=== PATIENT | male | born 1960 | race African-American/Black ===

== ENCOUNTER 2020-01-13 11:39 | Inpatient (IN) | payer OTHER ==
[2020-01-13 12:39] VITALS: BMI 24.4
--- NOTE | 2020-01-13 13:22 | HP ---
CIWA Score Nausea/Vomitin Muscle Tremors: 2 Anxiety: 2 Agitation: 2 Paroxysmal Sweats: 1-Minimal Palms Moist Orientation: 0-Oriented Tacttile Disturbances: 1-Very Mild Itch/Numbness Auditory Disturbances: 0-None Visual Disturbances: 2-Mild Sensitivity Headache: 2-Mild CIWA-Ar Total Score: 14 - Admission Criteria OASAS Guidelines: Admission for Medically Managed Detox: Requires at least one of the followin. CIWA greater than 12 2. Seizures within the past 24 hours 3. Delirium tremens within the past 24 hours 4. Hallucinations within the past 24 hours 5. Acute intervention needed for co occurring medical disorder 6. Acute intervention needed for co occurring psychiatric disorder 7. Severe withdrawal that cannot be handled at a lower level of care (continued vomiting, continued diarrhea, abnormal vital signs) requiring intravenous medication and/or fluids 8. Admitting History and Physical - Admission Chief Complaint: i need help to stop drinking alcohol History of Present Illness: this 59 years old male with alcohol dependence,seeking detox,first admission to this facility, syncope no seizure poor historian History Source: Patient Limitations to Obtaining History: No Limitations - Past Medical History [employer]: Yes: Syncope - Smoking History Smoking history: Current every day smoker Have you smoked in the past 12 months: Yes Aproximately how many cigarettes per day: 3 - Alcohol/Substance Use Hx Alcohol Use: Yes History of Substance Use: reports: None - Social History Usual Living Arrangement: Yes: Other (homeless) ADL: Support Services Occupation: unemployed History of Recent Travel: No Admission ROS [facility] - [facility] Chief Complaint: i need help to stop drinking alcoholl Allergies/Adverse Reactions: Allergies Allergy/AdvReac Type Severity Reaction Status Date / Time No Known Allergies Allergy Verified 01/13/20 12:31 History of Present Illness: this 59 years old male with alcohol dependence seeking help to stop, first visit to this facility syncope alcohol related no seizure Exam Limitations: No Limitations - Ebola screening Have you traveled outside of the country in the last 21 days: No Have you had contact with anyone from an Ebola affected area: No Have you been sick,other than usual withdrawal symptoms: No Do you have a fever: No - Review of Systems Constitutional: Loss of Appetite, Malaise, Night Sweats, Changes in sleep, Weakness, Unintentional Wgt. Loss EENT: reports: Nose Congestion Respiratory: reports: No Symptoms reported Cardiac: reports: No Symptoms Reported GI: reports: Nausea, Poor Appetite, Abdominal cramping : reports: No Symptoms Reported Musculoskeletal: reports: Back Pain, Muscle Pain Integumentary: reports: Dryness Neuro: reports: Headache, Tremors Endocrine: reports: No Symptoms Reported Hematology: reports: No Symptoms Reported Psychiatric: reports: No Sypmtoms Reported, Judgement Intact, Mood/Affect Appropiate, Orientated x3 Other Systems: Reviewed and Negative Patient History - Patient Medical History Hx Asthma: No Hx Chronic Obstructive Pulmonary Disease (COPD): No Hx Cancer: No Hx Cardiac Disorders: No Hx Hypertension: No Hx Hypercholesterolemia: No Hx Pacemaker: No HX Cerebrovascular Accident: No Hx Seizures: No Hx Dementia: No Hx Diabetes: No Hx Gastrointestinal Disorders: No Hx Genitourinary Disorders: No Hx Sexually Transmitted Disorders: No Hx Renal Disease (ESRD): No Hx Thyroid Disease: No Hx Human Immunodeficiency Virus (HIV): No (last 2019 negative) Hx Hepatitis C: No Hx Depression: No Hx Suicide Attempt: No Hx Bipolar Disorder: No Hx Schizophrenia: No Other Medical History: no suicidal,no homicidal - Patient Surgical History Past Surgical History: No Hx Neurologic Surgery: No Hx Cataract Extraction: No Hx Cardiac Surgery: No Hx Lung Surgery: No Hx Breast Surgery: No Hx Breast Biopsy: No Hx Abdominal Surgery: No Hx Appendectomy: No Hx Cholecystectomy: No Hx Genitourinary Surgery: No Hx Section: No Hx Orthopedic Surgery: Yes (right hand fx. 2019) Anesthesia Reaction: Yes - PPD History Previous Implant?: Yes Documented Results: Negative w/o proof Implanted On Prior R Admission?: No PPD to be Administered?: Yes - Smoking Cessation Smoking history: Current every day smoker Have you smoked in the past 12 months: Yes Aproximately how many cigarettes per day: 3 Cigars Per Day: 1 Hx Chewing Tobacco Use: No Initiated information on smoking cessation: Yes 'Breaking Loose' booklet given: 01/13/20 - Substance & Tx. History Hx Alcohol Use: Yes Hx Substance Use: No Substance Use Type: Alcohol Hx Substance Use Treatment: Yes (2019 did not recall facility) - Substances abused Alcohol Substance route: Oral Frequency: Daily Amount used: 7-14 nips of vodka 1pint to 1 and half pint of vodka Age of first use: 14 Date of last use: 01/13/20 Admission Physical Exam BHS - Vital Signs Vital Signs: Vital Signs - 24 hr 01/13/20 12:12 Temperature 97.0 F L Pulse Rate 103 H Respiratory 20 Rate Blood Pressure 151/92 - Physical General Appearance: Yes: Moderate Distress, Tremorous, Irritable, Sweating, Anxious HEENTM: Yes: Normocephalic, GENIA, Pharynx Normal Respiratory: Yes: Within Normal Limits, Lungs Clear, Normal Breath Sounds Neck: Yes: Within Normal Limits, Supple, Trachea in good position Breast: Yes: Within Normal Limits Cardiology: Yes: Within Normal Limits, Regular Rhythm, Regular Rate, S1, S2 Abdominal: Yes: Normal Bowel Sounds, Non Tender, Flat, Soft, Organomegaly Genitourinary: Yes: Within Normal Limits Back: Yes: Muscle Spasm Musculoskeletal: Yes: Back pain, Muscle Pain Extremities: Yes: Tremors Neurological: Yes: laminator printed circuit boards II-XII NML intact, Alert, Motor Strength 5/5 Integumentary: Yes: Dry Lymphatic: Yes: Within Normal Limits - Diagnostic (1) Alcohol dependence with uncomplicated withdrawal Current Visit: Yes Status: Acute (2) Syncope Current Visit: Yes Status: Acute (3) Dehydration Current Visit: Yes Status: Acute (4) Nicotine dependence Current Visit: Yes Status: Acute (5) Weight loss Current Visit: Yes Status: Acute Cleared for Admission [facility] - Detox or Rehab [facility] Level of Care: Medically Managed Detox Regimen/Protocol: Librium Breathalyzer - Breathalyzer Breathalyzer: 0.008 Urine Drug Screen - Test Device Lot number: [id number] Expiration date: 10/13/21 - Control Is test valid?: Yes - Results Drug screen NEGATIVE: Yes Inpatient Rehab Admission - Rehab Decision to Admit Inpatient rehab admission?: No
[2020-01-13] MEDS ORDERED: MENTHOL/PHENOL 1 EACH UD MM PRN (13:31)
[2020-01-13] MEDS ORDERED: ACETAMINOPHEN 325 MG TABLET (FP) PO PRN ×2 (13:31)
[2020-01-13] MEDS ORDERED: chlordiazePOXIDE HCL 25 MG CAPSULE PO PRN (13:31)
[2020-01-13] MEDS ORDERED: MAG HYDROX/AL HYDROX/SIMETH 30 ML UNIT-DOSE CUP PO PRN (13:31)
[2020-01-13] MEDS ORDERED: hydrOXYzine PAMOATE 25 MG CAPSULE (FP) PO PRN (13:31)
[2020-01-13] MEDS ORDERED: MAGNESIUM CITRATE 300 ML BOTTLE PO PRN (13:31)
[2020-01-13] MEDS ORDERED: MAGNESIUM HYDROX 2400MG/30ML ORAL SUSPENSION 30 ML CUP PO PRN (13:31)
[2020-01-13] MEDS ORDERED: BISMUTH SUBSALICYLATE 524 MG/30 ML UD PO PRN (13:31)
[2020-01-13] MEDS ORDERED: IBUPROFEN 400 MG TABLET (FP) PO PRN (13:31)
[2020-01-13] MEDS ORDERED: METHOCARBAMOL 500 MG TABLET PO PRN (13:31)
[2020-01-13] MEDS ORDERED: MELATONIN 5 MG TABLETS PO PRN (22:00)
[2020-01-13] MEDS: chlordiazePOXIDE HCL 25 MG CAPSULE PO SCH (22:40)
[2020-01-13] MEDS: THIAMINE HCL 100 MG TABLET (FP) PO SCH (22:40)
[2020-01-14] MEDS: chlordiazePOXIDE HCL 25 MG CAPSULE PO SCH ×3 (06:18→18:33)
--- NOTE | 2020-01-14 09:30 | EKG ---
Test Reason : Blood Pressure : / mmHG Vent. Rate : 100 BPM Atrial Rate : 100 BPM P-R Int : 144 ms QRS Dur : 082 ms QT Int : 342 ms P-R-T Axes : 058 -18 025 degrees QTc Int : 441 ms NORMAL SINUS RHYTHM NORMAL ECG NO PREVIOUS ECGS AVAILABLE Confirmed by Maame Edwards ([id number]) on 01/14/2020 9:30:32 AM Referred By: ELANA Confirmed By:Maame Edwards
[2020-01-14] MEDS: PRENATAL VITAMINS W/ FOLIC ACID TABLET (FP) PO SCH (10:11)
[2020-01-14 10:21] LABS: HEMATOCRIT 42.7 % (35.4-49); HEMOGLOBIN 13.9 GM/dL (11.7-16.9); MCH 28.5 pg (25.7-33.7); MCHC 32.6 g/dl (32.0-35.9); MEAN CELL VOLUME 87.5 fl (80-96); PLATELET COUNT 223 K/MM3 (134-434); RBC 4.88 M/mm3 (4.00-5.60); RDW 14.8 % (11.9-15.9); WHITE BLOOD COUNT 5.5 K/mm3 (4.0-10.0)
[2020-01-14 10:41] LABS: ALBUMIN 3.5 g/dl (3.4-5.0); BILIRUBIN,TOTAL 1.2 mg/dL (0.2-1); BLOOD UREA NITROGEN 16.8 mg/dL (7-18); CALCIUM 11.4 mg/dL (8.5-10.1); CREATININE 1.3 mg/dL (0.55-1.3); POTASSIUM 3.9 mmol/L (3.5-5.1); TOT PROT 6.5 g/dl (6.4-8.2)
[2020-01-14 10:47] LABS: SICKLE CELL SCREEN NEGATIVE (NEGATIVE)
--- NOTE | 2020-01-14 11:55 | PN ---
[facility] CIWA - CIWA Score Nausea/Vomitin-No Nausea/No Vomiting Muscle Tremors: 3 Anxiety: 4-Mod. Anxious/Guarded Agitation: 0-Normal Activity Paroxysmal Sweats: 1-Minimal Palms Moist Orientation: 0-Oriented Tacttile Disturbances: 0-None Auditory Disturbances: 0-None Visual Disturbances: 2-Mild Sensitivity Headache: 0-None Present CIWA-Ar Total Score: 10 BHS Progress Note (SOAP) Subjective: 59 years old male admitted on 01/13/20 for alcohol withdrawal sx management treating with librium detox regiment trouble sleep at night restlessness anxious Objective: 01/14/20 11:57 Vital Signs Temperature 96.8 F L 01/14/20 08:54 Pulse Rate 92 H 01/14/20 08:54 Respiratory Rate 20 01/14/20 08:54 Blood Pressure 165/94 01/14/20 08:54 O2 Sat by Pulse Oximetry (%) Laboratory Last Values WBC 5.5 K/mm3 (4.0-10.0) 01/14/20 08:00 RBC 4.88 M/mm3 (4.00-5.60) 01/14/20 08:00 Hgb 13.9 GM/dL (11.7-16.9) 01/14/20 08:00 Hct 42.7 % (35.4-49) 01/14/20 08:00 MCV 87.5 fl (80-96) 01/14/20 08:00 MCH 28.5 pg (25.7-33.7) 01/14/20 08:00 MCHC 32.6 g/dl (32.0-35.9) 01/14/20 08:00 RDW 14.8 % (11.9-15.9) 01/14/20 08:00 Plt Count 223 K/MM3 (134-434) 01/14/20 08:00 MPV 9.0 fl (7.5-11.1) 01/14/20 08:00 Sickle Cell Screen Negative (NEGATIVE) 01/14/20 08:00 Sodium 139 mmol/L (136-145) 01/14/20 08:00 Potassium 3.9 mmol/L (3.5-5.1) 01/14/20 08:00 Chloride 107 mmol/L (98-107) 01/14/20 08:00 Carbon Dioxide 28 mmol/L (21-32) 01/14/20 08:00 Anion Gap 4 MMOL/L (8-16) L 01/14/20 08:00 BUN 16.8 mg/dL (7-18) 01/14/20 08:00 Creatinine 1.3 mg/dL (0.55-1.3) 01/14/20 08:00 Est GFR (CKD-EPI)AfAm 69.22 01/14/20 08:00 Est GFR (CKD-EPI)NonAf 59.72 01/14/20 08:00 Random Glucose 95 mg/dL (74-106) 01/14/20 08:00 Calcium 11.4 mg/dL (8.5-10.1) H 01/14/20 08:00 Total Bilirubin 1.2 mg/dL (0.2-1) H 01/14/20 08:00 AST 13 U/L (15-37) L 01/14/20 08:00 ALT 17 U/L (13-61) 01/14/20 08:00 Alkaline Phosphatase 142 U/L (45-117) H 01/14/20 08:00 Total Protein 6.5 g/dl (6.4-8.2) 01/14/20 08:00 Albumin 3.5 g/dl (3.4-5.0) 01/14/20 08:00 HIV 1&2 Antibody Screen Negative 01/14/20 08:00 HIV P24 Antigen Negative 01/14/20 08:00 lab noted bp elevation begin amlodipine 10 mg po daily 01/14/20 12:02 01/14/20 12:03 Assessment: 01/14/20 12:04 alcohol withdrawal Plan: librium regiment
[2020-01-14] MEDS: amLODIPine BESYLATE 10 MG TABLET (FP) PO SCH (13:42)
[2020-01-14] MEDS ORDERED: chlordiazePOXIDE HCL 10 MG CAPSULE PO PRN (20:09)
[2020-01-14] MEDS ORDERED: chlordiazePOXIDE HCL 25 MG CAPSULE PO SCH (20:10)
--- NOTE | 2020-01-14 20:16 | PN ---
[facility] Progress Note Note: Patient states fell asleep while watching TV, fell out of chair and hit his head. Denies headache, pain, or dizziness. Vital Signs 01/14/20 01/14/20 16:35 19:39 Temperature 96.8 F L 97.0 F L Pulse Rate 87 95 H Respiratory 18 20 Rate Blood Pressure 142/96 164/101 H Assess: Alert and oriented. Gait steady. BHG = GENIA. Sclera clear. 2.5 cm hematoma noted on (L) lateral forehead w/ erythema. Skin intact. Non- tender. Plan: Fall Protocol 1. Patient refused CT scan. Ice Pack q1h and prn x 24 hr.
[2020-01-14] MEDS: THIAMINE HCL 100 MG TABLET (FP) PO SCH (22:37)
[2020-01-15] MEDS ORDERED: chlordiazePOXIDE HCL 25 MG CAPSULE PO SCH (05:00)
[2020-01-15] MEDS: chlordiazePOXIDE 5 MG CAPSULE PO SCH ×4 (06:19→22:21)
[2020-01-15] MEDS: amLODIPine BESYLATE 10 MG TABLET (FP) PO SCH (10:44)
[2020-01-15] MEDS: PRENATAL VITAMINS W/ FOLIC ACID TABLET (FP) PO SCH (10:44)
--- NOTE | 2020-01-15 11:32 | PN ---
S CIWA - CIWA Score Nausea/Vomitin-No Nausea/No Vomiting Muscle Tremors: 2 Anxiety: 3 Agitation: 1-Slight > Activity Paroxysmal Sweats: 1-Minimal Palms Moist Orientation: 0-Oriented Tacttile Disturbances: 0-None Auditory Disturbances: 0-None Visual Disturbances: 1-Very Mild Sensitivity Headache: 0-None Present CIWA-Ar Total Score: 8 BHS Progress Note (SOAP) Subjective: 59 years old male admitted on 01/14/20 for alcohol withdrawal sx management treating with librium detox regiment denies headache left lateral forehead hematoma subsided to 1 cm no erythema of the skin noted denies dizziness ambulating steady gait alert oriented x 3 speech clearly Objective: 01/15/20 11:35 Vital Signs Temperature 96.9 F L 01/15/20 08:52 Pulse Rate 92 H 01/15/20 08:52 Respiratory Rate 16 01/15/20 08:52 Blood Pressure 139/92 01/15/20 08:52 O2 Sat by Pulse Oximetry (%) Laboratory Last Values WBC 5.5 K/mm3 (4.0-10.0) 01/14/20 08:00 RBC 4.88 M/mm3 (4.00-5.60) 01/14/20 08:00 Hgb 13.9 GM/dL (11.7-16.9) 01/14/20 08:00 Hct 42.7 % (35.4-49) 01/14/20 08:00 MCV 87.5 fl (80-96) 01/14/20 08:00 MCH 28.5 pg (25.7-33.7) 01/14/20 08:00 MCHC 32.6 g/dl (32.0-35.9) 01/14/20 08:00 RDW 14.8 % (11.9-15.9) 01/14/20 08:00 Plt Count 223 K/MM3 (134-434) 01/14/20 08:00 MPV 9.0 fl (7.5-11.1) 01/14/20 08:00 Sickle Cell Screen Negative (NEGATIVE) 01/14/20 08:00 Sodium 139 mmol/L (136-145) 01/14/20 08:00 Potassium 3.9 mmol/L (3.5-5.1) 01/14/20 08:00 Chloride 107 mmol/L (98-107) 01/14/20 08:00 Carbon Dioxide 28 mmol/L (21-32) 01/14/20 08:00 Anion Gap 4 MMOL/L (8-16) L 01/14/20 08:00 BUN 16.8 mg/dL (7-18) 01/14/20 08:00 Creatinine 1.3 mg/dL (0.55-1.3) 01/14/20 08:00 Est GFR (CKD-EPI)AfAm 69.22 01/14/20 08:00 Est GFR (CKD-EPI)NonAf 59.72 01/14/20 08:00 Random Glucose 95 mg/dL (74-106) 01/14/20 08:00 Calcium 11.4 mg/dL (8.5-10.1) H 01/14/20 08:00 Total Bilirubin 1.2 mg/dL (0.2-1) H 01/14/20 08:00 AST 13 U/L (15-37) L 01/14/20 08:00 ALT 17 U/L (13-61) 01/14/20 08:00 Alkaline Phosphatase 142 U/L (45-117) H 01/14/20 08:00 Total Protein 6.5 g/dl (6.4-8.2) 01/14/20 08:00 Albumin 3.5 g/dl (3.4-5.0) 01/14/20 08:00 RPR Titer Nonreactive (NONREACTIVE) 01/14/20 08:00 HIV 1&2 Antibody Screen Negative 01/14/20 08:00 HIV P24 Antigen Negative 01/14/20 08:00 lab noted Assessment: 01/15/20 11:35 alcohol withdrawal Plan: librium regiment
[2020-01-15] MEDS: THIAMINE HCL 100 MG TABLET (FP) PO SCH (22:21)
[2020-01-16] MEDS ORDERED: chlordiazePOXIDE HCL 10 MG CAPSULE PO PRN
[2020-01-16] MEDS: chlordiazePOXIDE HCL 10 MG CAPSULE PO SCH ×4 (05:37→22:28)
[2020-01-16] MEDS: amLODIPine BESYLATE 10 MG TABLET (FP) PO SCH (10:30)
[2020-01-16] MEDS: PRENATAL VITAMINS W/ FOLIC ACID TABLET (FP) PO SCH (10:30)
--- NOTE | 2020-01-16 11:26 | PN ---
S CIWA - CIWA Score Nausea/Vomitin-No Nausea/No Vomiting Muscle Tremors: 2 Anxiety: 2 Agitation: 1-Slight > Activity Paroxysmal Sweats: 1-Minimal Palms Moist Orientation: 0-Oriented Tacttile Disturbances: 0-None Auditory Disturbances: 0-None Visual Disturbances: 0-None Headache: 0-None Present CIWA-Ar Total Score: 6 BHS Progress Note (SOAP) Subjective: 59 years old male admitted on 01/13/20 for alcohol withdrawal sx management treating with librium detox regiment requests ensure as nutrition supplement that weight loss recently Objective: 01/16/20 11:24 Vital Signs Temperature 97.5 F L 01/16/20 08:41 Pulse Rate 101 H 01/16/20 08:41 Respiratory Rate 20 01/16/20 08:41 Blood Pressure 141/99 01/16/20 08:41 O2 Sat by Pulse Oximetry (%) Laboratory Last Values WBC 5.5 K/mm3 (4.0-10.0) 01/14/20 08:00 RBC 4.88 M/mm3 (4.00-5.60) 01/14/20 08:00 Hgb 13.9 GM/dL (11.7-16.9) 01/14/20 08:00 Hct 42.7 % (35.4-49) 01/14/20 08:00 MCV 87.5 fl (80-96) 01/14/20 08:00 MCH 28.5 pg (25.7-33.7) 01/14/20 08:00 MCHC 32.6 g/dl (32.0-35.9) 01/14/20 08:00 RDW 14.8 % (11.9-15.9) 01/14/20 08:00 Plt Count 223 K/MM3 (134-434) 01/14/20 08:00 MPV 9.0 fl (7.5-11.1) 01/14/20 08:00 Sickle Cell Screen Negative (NEGATIVE) 01/14/20 08:00 Sodium 139 mmol/L (136-145) 01/14/20 08:00 Potassium 3.9 mmol/L (3.5-5.1) 01/14/20 08:00 Chloride 107 mmol/L (98-107) 01/14/20 08:00 Carbon Dioxide 28 mmol/L (21-32) 01/14/20 08:00 Anion Gap 4 MMOL/L (8-16) L 01/14/20 08:00 BUN 16.8 mg/dL (7-18) 01/14/20 08:00 Creatinine 1.3 mg/dL (0.55-1.3) 01/14/20 08:00 Est GFR (CKD-EPI)AfAm 69.22 01/14/20 08:00 Est GFR (CKD-EPI)NonAf 59.72 01/14/20 08:00 Random Glucose 95 mg/dL (74-106) 01/14/20 08:00 Calcium 11.4 mg/dL (8.5-10.1) H 01/14/20 08:00 Total Bilirubin 1.2 mg/dL (0.2-1) H 01/14/20 08:00 AST 13 U/L (15-37) L 01/14/20 08:00 ALT 17 U/L (13-61) 01/14/20 08:00 Alkaline Phosphatase 142 U/L (45-117) H 01/14/20 08:00 Total Protein 6.5 g/dl (6.4-8.2) 01/14/20 08:00 Albumin 3.5 g/dl (3.4-5.0) 01/14/20 08:00 RPR Titer Nonreactive (NONREACTIVE) 01/14/20 08:00 HIV 1&2 Antibody Screen Negative 01/14/20 08:00 HIV P24 Antigen Negative 01/14/20 08:00 lab noted 01/16/20 11:25 bp elevation begin lisinopril along with amlodipine Assessment: 01/16/20 11:26 alcohol withdrawal Plan: librium regiment
[2020-01-16] MEDS: LISINOPRIL 10 MG TABLET (FP) PO SCH (14:01)
[2020-01-16] MEDS: THIAMINE HCL 100 MG TABLET (FP) PO SCH (22:28)
[2020-01-17] MEDS: chlordiazePOXIDE HCL 10 MG CAPSULE PO SCH ×2 (05:48→17:38)
[2020-01-17] MEDS: LISINOPRIL 10 MG TABLET (FP) PO SCH (10:39)
[2020-01-17] MEDS: PRENATAL VITAMINS W/ FOLIC ACID TABLET (FP) PO SCH (10:39)
[2020-01-17] MEDS: amLODIPine BESYLATE 10 MG TABLET (FP) PO SCH (10:39)
--- NOTE | 2020-01-17 13:05 | PN ---
[facility] CIWA - CIWA Score Nausea/Vomitin-No Nausea/No Vomiting Muscle Tremors: 1-None Visible, but [place] Anxiety: 1-Mildly Anxious Agitation: 0-Normal Activity Paroxysmal Sweats: 1-Minimal Palms Moist Orientation: 0-Oriented Tacttile Disturbances: 0-None Auditory Disturbances: 0-None Visual Disturbances: 0-None Headache: 0-None Present CIWA-Ar Total Score: 3 BHS Progress Note (SOAP) Subjective: 59 years old male admitted on 01/13/20 for alcohol withdrawal sx management treating with librium detox regiment feeling better mild anxiety encourage to attend therapeutic groups and meetings as part of recovery Objective: 01/17/20 13:06 Vital Signs Temperature 96.4 F L 01/17/20 09:15 Pulse Rate 75 01/17/20 09:15 Respiratory Rate 16 01/17/20 09:15 Blood Pressure 107/70 01/17/20 09:15 O2 Sat by Pulse Oximetry (%) Laboratory Last Values WBC 5.5 K/mm3 (4.0-10.0) 01/14/20 08:00 RBC 4.88 M/mm3 (4.00-5.60) 01/14/20 08:00 Hgb 13.9 GM/dL (11.7-16.9) 01/14/20 08:00 Hct 42.7 % (35.4-49) 01/14/20 08:00 MCV 87.5 fl (80-96) 01/14/20 08:00 MCH 28.5 pg (25.7-33.7) 01/14/20 08:00 MCHC 32.6 g/dl (32.0-35.9) 01/14/20 08:00 RDW 14.8 % (11.9-15.9) 01/14/20 08:00 Plt Count 223 K/MM3 (134-434) 01/14/20 08:00 MPV 9.0 fl (7.5-11.1) 01/14/20 08:00 Sickle Cell Screen Negative (NEGATIVE) 01/14/20 08:00 Sodium 139 mmol/L (136-145) 01/14/20 08:00 Potassium 3.9 mmol/L (3.5-5.1) 01/14/20 08:00 Chloride 107 mmol/L (98-107) 01/14/20 08:00 Carbon Dioxide 28 mmol/L (21-32) 01/14/20 08:00 Anion Gap 4 MMOL/L (8-16) L 01/14/20 08:00 BUN 16.8 mg/dL (7-18) 01/14/20 08:00 Creatinine 1.3 mg/dL (0.55-1.3) 01/14/20 08:00 Est GFR (CKD-EPI)AfAm 69.22 01/14/20 08:00 Est GFR (CKD-EPI)NonAf 59.72 01/14/20 08:00 Random Glucose 95 mg/dL (74-106) 01/14/20 08:00 Calcium 11.4 mg/dL (8.5-10.1) H 01/14/20 08:00 Total Bilirubin 1.2 mg/dL (0.2-1) H 01/14/20 08:00 AST 13 U/L (15-37) L 01/14/20 08:00 ALT 17 U/L (13-61) 01/14/20 08:00 Alkaline Phosphatase 142 U/L (45-117) H 01/14/20 08:00 Total Protein 6.5 g/dl (6.4-8.2) 01/14/20 08:00 Albumin 3.5 g/dl (3.4-5.0) 01/14/20 08:00 RPR Titer Nonreactive (NONREACTIVE) 01/14/20 08:00 HIV 1&2 Antibody Screen Negative 01/14/20 08:00 HIV P24 Antigen Negative 01/14/20 08:00 lab noted Assessment: 01/17/20 13:06 alcohol withdrawal Plan: librium regiment
[2020-01-17] MEDS: THIAMINE HCL 100 MG TABLET (FP) PO SCH (22:15)
[2020-01-18] MEDS ORDERED: chlordiazePOXIDE HCL 10 MG CAPSULE PO ONE (05:00)
[2020-01-18 06:21] VITALS: BP 111/78; PULSE 77; TEMP 97.5
--- NOTE | 2020-01-18 11:18 | DS ---
[facility] Detox Discharge Summary Admission Date: 01/13/20 Discharge Date: 01/18/20 - History Present History: Alcohol Dependence - Physical Exam Results Vital Signs: Vital Signs Temperature 97.5 F L 01/18/20 06:21 Pulse Rate 77 01/18/20 06:21 Respiratory Rate 16 01/18/20 06:40 Blood Pressure 111/78 01/18/20 06:21 O2 Sat by Pulse Oximetry (%) Pertinent Admission Physical Exam Findings: PE Gnl: WDWN, in no distress mental status: awake, alert, dysarthria motor: nl - Treatment Hospital Course: Detox Protocol Followed, Detoxed Safely, Responded well, Discharged Condition Good, Rehab Referral Accepted - Medication Discharge Medications: Ambulatory Orders NK [No Known Home Medication] 01/13/20 - Diagnosis (1) Alcohol dependence with uncomplicated withdrawal Status: Acute - AMA Did Patient Leave Against Medical Advice: No
== END 2020-01-18 08:51 | disposition home or self-care (01) | DRG 775 ==
LOC: YASAS 11:39 → Y3N 13:45
PROVIDERS: ADMIT Allergy & Immunology; ATTEND Allergy & Immunology
PROC: HZ2ZZZZ Detoxification Services for Substance Abuse Treatment (ICD-10-PCS; principal; 2020-01-13)
DX: F10.230 Alcohol dependence with withdrawal, uncomplicated (principal); F17.210 Nicotine dependence, cigarettes, uncomplicated; E86.0 Dehydration; I10 Essential (primary) hypertension; R63.4 Abnormal weight loss; Z68.24 Body mass index [BMI] 24.0-24.9, adult; S00.03XA Contusion of scalp, initial encounter; S00.83XA Contusion of other part of head, initial encounter; W07.XXXA Fall from chair, initial encounter; Y93.89 Activity, other specified; Y92.098 Other place in other non-institutional residence as the place of occurrence of the external cause; Y99.8 Other external cause status
CPT/HCPCS: 36415; 71046-TC-FY; 80053; 85027; 85660; 86593; 87389; 93005; 93010